=== PATIENT | female | born 1970 | race Caucasian/White ===

== ENCOUNTER → 2016-08-19 | Outpatient (CLI) | payer BC ==
[~2016-08-19] MED LIST: ALLEGRA-D 24HOU1 T24 PO; CLARITIN 10MG T10 MG PO; CONTRAVE1 TER PO; MIRALAX(PO17 GM/1 PA PO; NAPROSYN 500MG500 MG PO; PRILOSEC40 MG PO; SINGULAIR 10 MG10 MG PO
[2016-08-19 18:01] LABS: LYMPH % 19.5 % (10-50.0)
[2016-08-19 18:06] LABS: HEMOGLOBIN 11.1 g/dL (12.2-16.2)
[2016-08-21 08:42] LABS: Iron 152 ug/dL (27-159); Iron Saturation 37 % (15-55); UIBC 255 ug/dL (131-425)
== END ==
LOC: LAB 16:58
PROVIDERS: Physician Assistant
DX: J18.1 Lobar pneumonia, unspecified organism (principal); D64.9 Anemia, unspecified

== ENCOUNTER → 2016-08-19 | Outpatient (CLI) | payer BC ==
--- NOTE | 2016-08-19 22:12 | RADIOLOGY REPORT PS360 ---
CHEST(2 VIEWS-NOT PORTABLE) HISTORY: PNEUMONIA OF LEFT LOWER LOBE DUE TO INFECTIOUS ORGANISM ORDERING PHYSICIAN: PACO VENTURA PATIENT AGE: 46 years COMPARISON: 06/14/2016 FINDINGS: The cardiomediastinal silhouette and pulmonary vascularity are within normal limits. The lungs are clear without infiltrates, suspicious nodules, or pleural effusions. No acute bony abnormalities. Previously noted left lower lobe infiltrate and nodularity in the left midlung has improved IMPRESSION: Negative chest, no acute finding
== END ==
LOC: RAD 17:22
DX: J18.1 Lobar pneumonia, unspecified organism (principal); D64.9 Anemia, unspecified

== ENCOUNTER → 2016-12-11 | Outpatient (CLI) | payer BC ==
--- NOTE | 2016-12-18 09:55 | RADIOLOGY REPORT PS360 ---
DIG MAMM-SCREEN JACKIE W/CAD CAD Screening ORDERING PHYSICIAN : Macho Lockhart MD PATIENT AGE: 46 years GENDER: Female COMPARISON: Previous mammograms: February INDICATION: Routine screening no hormones no new complaints previous excisional biopsy right breast. Family history. Mother and grandmother with breast cancer in 50s TECHNIQUE: Standard CC and MLO images were obtained. R2 CAD reviewed. FINDINGS: Mild/moderate breast density. Minimal scattered fibroglandular elements bilateral. No dominant mass nor architectural distortion nor significant calcifications CAD computer review highlights no areas of concern RIGHT BREAST: Right breast appears unchanged no areas of concern follow-up in one year recommended LEFT BREAST: Small area of density at the lateral left breast on cc view I believe was present on studies dating back to 2010 2011 it dissipates on the MLO view. With this I believe follow-up in one year would be adequate.. CAD highlights no areas of concern IMPRESSION: Stable bilateral mammogram with no significant new findings. Encourage and strongly Recommend ongoing annual follow-up one year in this patient. note positive family history BI-RADS CATEGORY: 2_Benign RECOMMENDED FOLLOWUP: 12M 12 MONTH FOLLOW-UP (A letter has been sent to the patient regarding results of the study.)
== END ==
LOC: RAD 16:00
DX: Z12.31 Encounter for screening mammogram for malignant neoplasm of breast (principal)
CPT/HCPCS: G0202